=== PATIENT | female | born 1955 | race Caucasian/White ===

== ENCOUNTER 2017-02-05 12:40 | Emergency (ER) | payer BC, MEDICAID ==
--- NOTE | 2017-02-05 13:03 | ED Physician Chart ---
ED Chief Complaint/HPI - Patient Information Date Seen:: 02/05/17 Time Seen:: 12:55 Chief Complaint:: Recurrent palpitation. History of Present Illness:: Pt has h/o palpitation 5 days ago and has been followed with PCP Dr. Wray. Pt noticed another transient episode of palpitation at about 11 am today while she was hiking. No syncope or lightheadedness. No chest pain or dyspnea. Pt denies illicit drug or ethanol use. Pt admits excessive caffeinated beverage consumption such as coffee, etc. Allergies:: Sulfa Vitals:: see Nurse Note. Historian:: Patient Family MD/PCP:: Dr. Wray. LMP:: Postmenopausal Review:: Nurse's Note Reviewed ED Review of Systems - Review of Systems General/Constitutional: No fever, No weight loss, No weakness, No edema, No loss of appetite Skin: No rash, No bruising Head: No headache, No light-headedness Eyes: No loss of vision, No pain, No diplopia ENT: No earache, No nasal drainage, No sore throat Neck: No neck pain, No thyromegaly, No stiffness, No mass noted Cardio Vascular: No chest pain, Palpitations, No edema Pulmonary: No SOB, No cough, No wheezing GI: No nausea, No vomiting, No pain Musculoskeletal: No bone or joint pain Endocrine: No polyuria, No polydipsia Psychiatric: Prior psych history, No depression, No anxiety Hematopoietic: No bruising, No lymphadenopathy Allergic/Immuno: No urticaria, No angioedema Neurological: No syncope, No focal symptoms, No weakness, No paresthesia, No confusion ED Past Medical History - Past Medical History Past Medical History: No significant medical hx Family History: Heart disease (father), Diabetes Melitus (brother, parents.) Social History: Non Smoker, No Alcohol, No Drug Use, , Employed, Other ( lives with her brother and [id number].) Employment:: Health field clerk Surgical History: other (Breast reduction '05) Psychiatricy History: Other (Anxiety disorder.) Medication: Reviewed Family Medical History - Family Member Father Ethnicity: Non- Living Status: Hx Family Coronary Artery Disease: Yes Hx Family Hypertension: Yes Hx Family Diabetes: Yes ED Physical Exam - Physical Examination General/Constitutional: Awake, Well-developed, well-nourished, Alert, No distress, GCS 15, Non-toxic appearing, Ambulatory Other Gen/Cons comments:: Breathes comfortably, speaks clearly, interacts normally, and ambulates without difficulty. Head: Atraumatic Eyes: Lids, conjuctiva normal, PERRL, EOMI Skin: Nl inspection, No rash, No skin lesions, No ecchymosis, Well hydrated, No lymphadenopathy ENMT: External ears, nose nl, Nasal exam nl, Oropharynx nl Neck: Nontender, Full ROM w/o pain, No JVD, No nuchal rigidity, No mass, No stridor Respiratory: Nl effort/Exclusion, Clear to Auscultation, No Wheeze/Rhonchi/Rales Cardio Vascular: RRR, No murmur, gallop, rubs GI: No tenderness/rebounding/guarding, No organomegaly, Normal BS's, Nondistended, No mass/bruits Other GI comments:: Obese but soft. Extremities: No tenderness or effusion, No edema Neuro/Psych: Alert/oriented (oriented x 3), No focal deficits ED Labs/Radiology/EKG Results - Lab Results Results: Laboratory Tests 02/05/17 02/05/17 02/05/17 13:20 13:20 13:20 WBC 6.0 RBC 4.32 Hgb 13.9 Hct 40.3 L MCV 93.2 MCH 32.2 H MCHC Differential 34.6 RDW 11.4 L Plt Count 225 MPV 7.2 Neutrophils % 61.0 Lymphocytes % 30.1 Monocytes % 6.6 Eosinophils % 1.7 Basophils % 0.6 PT 9.9 INR 0.95 PTT (Actin FS) 23.2 L Sodium 141 Potassium 4.1 Chloride 107 Carbon Dioxide 28.3 Anion Gap 9.8 BUN 20 Creatinine 1.0 Est GFR ( Amer) > 60.0 Est GFR (Non-Af Amer) 59.9 BUN/Creatinine Ratio 20.0 Glucose 134 H Calcium 9.5 Creatine Kinase 108 Troponin I 02/05/17 13:20 WBC RBC Hgb Hct MCV MCH MCHC Differential RDW Plt Count MPV Neutrophils % Lymphocytes % Monocytes % Eosinophils % Basophils % PT INR PTT (Actin FS) Sodium Potassium Chloride Carbon Dioxide Anion Gap BUN Creatinine Est GFR ( Amer) Est GFR (Non-Af Amer) BUN/Creatinine Ratio Glucose Calcium Creatine Kinase Troponin I 0.01 Laboratory Last Values WBC 6.0 Th/cmm (4.8-10.8) 02/05/17 13:20 RBC 4.32 Mil/cmm (3.80-5.10) 02/05/17 13:20 Hgb 13.9 gm/dL (12-16) 02/05/17 13:20 Hct 40.3 % (41.0-60) L 02/05/17 13:20 MCV 93.2 fl (81-100) 02/05/17 13:20 MCH 32.2 pg (27.0-31.0) H 02/05/17 13:20 MCHC Differential 34.6 pg (28.0-36.0) 02/05/17 13:20 RDW 11.4 % (11.5-20.0) L 02/05/17 13:20 Plt Count 225 Th/cmm (150-400) 02/05/17 13:20 MPV 7.2 fl 02/05/17 13:20 Neutrophils % 61.0 % (40.0-80.0) 02/05/17 13:20 Lymphocytes % 30.1 % (20.0-50.0) 02/05/17 13:20 Monocytes % 6.6 % (2.0-10.0) 02/05/17 13:20 Eosinophils % 1.7 % (0.0-5.0) 02/05/17 13:20 Basophils % 0.6 % (0.0-2.0) 02/05/17 13:20 PT 9.9 SECONDS (9.5-11.5) 02/05/17 13:20 INR 0.95 (0.5-1.4) 02/05/17 13:20 PTT (Actin FS) 23.2 SECONDS (26.0-38.0) L 02/05/17 13:20 Sodium 141 mEq/L (136-145) 02/05/17 13:20 Potassium 4.1 mEq/L (3.5-5.1) 02/05/17 13:20 Chloride 107 mEq/L (98-107) 02/05/17 13:20 Carbon Dioxide 28.3 mEq/L (21.0-31.0) 02/05/17 13:20 Anion Gap 9.8 (7.0-16.0) 02/05/17 13:20 BUN 20 mg/dL (7-25) 02/05/17 13:20 Creatinine 1.0 mg/dL (0.6-1.2) 02/05/17 13:20 Est GFR ( Amer) > 60.0 ml/min (>90) 02/05/17 13:20 Est GFR (Non-Af Amer) 59.9 ml/min 02/05/17 13:20 BUN/Creatinine Ratio 20.0 02/05/17 13:20 Glucose 134 mg/dL (70-105) H 02/05/17 13:20 Calcium 9.5 mg/dL (8.6-10.3) 02/05/17 13:20 Creatine Kinase 108 U/L (30-223) 02/05/17 13:20 Troponin I 0.01 ng/mL (0.01-0.05) 02/05/17 13:20 TSH 4.02 uIU/ml (0.34-5.60) 02/05/17 13:20 - Radiology Results Results: PCXR: Based on my interpretation, NAD. Official report is pending. - EKG Interpretations EKG Time:: 13:46 Rate & Rhythm: NSR with VR 82 Comments:: No acute ischemic changes. surveillance system monitor: NSR with VR 78. Occasional PAC's. ED Septic Shock - . Is Septic Shock (SBP<90, OR Lactate>4 mmol\L) present?: No ED Reassessment (Disposition) - Reassessment Reassessment:: 1418 Pt feels well. No new complaint or findings. Remaining lab results are pending. 1510 Pt feels much better. No recurrent palpitation. Pt breathes comfortably. No lightheadedness or dyspnea. Remaining lab results just became available. EKG , CXR, and lab findings have been reviewed with pt. Pt requests to go home now and does not want further observation/management in hospital. Pt states that she will follow with PCP Dr. Wray this week. Aftercare instructions have been given. Reassessment Condition:: Improved - Diagnosis Diagnosis:: H/O palpitation, probably related to excessive caffeine consumption. Stable and current asymptomatic. - Aftercare/Follow up Instructions Aftercare/Follow-Up Instructions:: Refer to Discharge Instructions Notes:: Bedrest for today. Avoid caffeine, alcohol, or emotionally stressful situations. Relaxation techniques as given. No strenous activities until further physician direction. F/U with PCP Dr. Wray in 1 ti 2 days for recheck with repeat lab study: BMP. Return to ER immediately if condition worsens or if any further questions/ problems. Medication Prescribed:: None - Patient Disposition Discharge/Transfer:: Home Time:: 15:25 Condition at Disposition:: Stable, Improved
[2017-02-05 13:27] LABS: % BASOPHILS 0.6 % (0.0-2.0); % EOSINOPHILS 1.7 % (0.0-5.0); % LYMPHOCYTES 30.1 % (20.0-50.0); % MONOCYTES 6.6 % (2.0-10.0); EOSINOPHILE ABSOLUTE 0.1 Th/cmm (0.1-0.4); HEMATOCRIT 40.3 % (41.0-60); HEMOGLOBIN 13.9 gm/dL (12-16); LYMPHOCYTE ABSOLUTE 1.8 Th/cmm (1.5-3.0); MEAN CELL VOLUME 93.2 fl (81-100); MEAN CORPUSCULAR HEMOGLOBIN 32.2 pg (27.0-31.0); MEAN CORPUSCULAR HGB CONC 34.6 pg (28.0-36.0); MEAN PLATELET VOLUME 7.2 fl; MONOCYTE ABSOLUTE 0.4 Th/cmm (0.3-1.0); NEUTROPHILE ABSOLUTE 3.7 Th/cmm (1.8-8.0); PLATELET COUNT 225 Th/cmm (150-400); RED BLOOD COUNT 4.32 Mil/cmm (3.80-5.10); RED CELL DISTRIBUTION WIDTH 11.4 % (11.5-20.0)
[2017-02-05 13:39] LABS: INR 0.95 (0.5-1.4); PROTHROMBIN TIME (TEST) 9.9 SECONDS (9.5-11.5)
[2017-02-05 13:42] LABS: ANION GAP 9.8 (7.0-16.0); BUN - UREA NITROGEN 20 mg/dL (7-25); CALCIUM SERUM 9.5 mg/dL (8.6-10.3); CARBON DIOXIDE 28.3 mEq/L (21.0-31.0); CHLORIDE 107 mEq/L (98-107); CREATININE KINASE 108 U/L (30-223); GFR AFRICAN-AMERICAN > 60.0 ml/min (>90); GFR NON AFRICAN-AMERICAN 59.9 ml/min; GLUCOSE 134 mg/dL (70-105); POTASSIUM SERUM 4.1 mEq/L (3.5-5.1); SODIUM SERUM 141 mEq/L (136-145)
--- NOTE | 2017-02-06 08:59 | Diagnostic Imaging Report ---
Portable chest x-ray Time: 1407 hours History: Cardiomegaly Allowing for portable technique the heart size is normal. No focal pulmonary parenchymal processes. No hilar or mediastinal abnormalities. The heart is not enlarged. Impression: No acute abnormalities.
== END 2017-02-05 15:39 | disposition home or self-care (01) ==
LOC: ER 12:40
DX: R00.2 Palpitations (principal); Z88.2 Allergy status to sulfonamides
CPT/HCPCS: 36415-UA; 71010-TC; 80048-TC; 82550-TC; 84443-TC; 84484-TC; 85025-TC; 85610-TC; 93005